=== PATIENT | female | born 1930 | race Caucasian/White ===

== ENCOUNTER 2017-01-24 11:19 | Inpatient (IN) | payer MEDICARE, MEDICAID ==
[~2017-01-24] VITALS: Ht 162.6 cm; Wt 73.1 kg
[2017-01-24] MEDS ORDERED: IV NS 0.9% 500 ML BAG IV ONE (11:30)
[2017-01-24 11:47] LABS: BASOPHILS # (AUTO) 0.3 /CMM (0.0-0.2); BASOPHILS % (AUTO) 3.2 % (0.0-2.0); EOSINOPHILS % (AUTO) 0.1 % (0.0-6.0); HEMATOCRIT 34 % (33-45); HEMOGLOBIN 11.2 g/dL (11.5-14.8); LYMPHOCYTES % (AUTO) 31.7 % (20.0-44.0); MEAN CORPUSCULAR HEMOGLOBIN 29 PG (26.0-33.0); MEAN CORPUSCULAR HGB CONC 33 g/dl (31.0-36.0); MEAN CORPUSCULAR VOLUME 89 fL (82-100); MONOCYTES # (AUTO) 1.1 /CMM (0.1-1.30); MONOCYTES % (AUTO) 11.7 % (2.0-12.0); NEUTROPHILS # (AUTO) 5.2 /CMM (1.8-8.9); NEUTROPHILS % (AUTO) 53.3 % (43.0-81.0); PLATELET COUNT (AUTO) 219 /CMM (150-450); RDW COEFFICIENT OF VARIATION 13.7 (11.5-15.0); RED BLOOD CELL COUNT(AUTO) 3.88 MIL/uL (4.0-5.2); WHITE BLOOD COUNT (AUTO) 9.6 K/uL (4.3-11.0)
[2017-01-24] MEDS ORDERED: LISI-603 PO (11:51)
[2017-01-24] MEDS ORDERED: HYDR100T27 PO (11:51)
[2017-01-24] MEDS ORDERED: DONE5TAB34 PO (11:51)
[2017-01-24] MEDS ORDERED: PRAV20TA4 PO (11:51)
[2017-01-24] MEDS ORDERED: GLIP5TAB13 PO (11:51)
[2017-01-24] MEDS ORDERED: CARV6.252 PO (11:51)
[2017-01-24] MEDS ORDERED: QUET25TA PO (11:51)
[2017-01-24] MEDS ORDERED: METF500T7 PO (11:51)
[2017-01-24] MEDS ORDERED: ALLO100T PO (11:51)
[2017-01-24] MEDS ORDERED: LORA10TA7 PO (11:53)
[2017-01-24] MEDS ORDERED: DOCU-25 PO (11:53)
[2017-01-24] MEDS ORDERED: ASPI81TA2 PO (11:53)
[2017-01-24 12:12] LABS: CALCIUM, SERUM 10.3 mg/dL (8.5-10.1); CARBON DIOXIDE 19 mmol/L (21-32); CHLORIDE 97 mmol/L (98-107); CREATININE 1.2 mg/dL (0.6-1.3); GLUCOSE 119 mg/dL (74-106); POTASSIUM 4.1 mmol/L (3.5-5.1); SODIUM SERUM 132 mmol/L (136-145); UREA NITROGEN, BLOOD 29 mg/dL (7-18)
[2017-01-24 12:13] LABS: INR 0.99 (0.87-1.13); PROTHROMBIN TIME 10.3 SECS (9.5-12.7)
[2017-01-24 12:21] LABS: TROPONIN I < 0.017 ng/mL (0.00-0.056)
[2017-01-24 12:57] LABS: THYROID STIMULATING HORMONE 1.462 uIU/mL (0.358-3.74)
[2017-01-24 13:10] LABS: APPEARANCE,URINE Clear (CLEAR); BILIRUBIN,URINE Negative (NEGATIVE); BLOOD, URINE Negative Ery/uL (NEGATIVE); COLOR,URINE Yellow (YELLOW); KETONES,URINE Negative (NEGATIVE); LEUKOCYTE ESTERASE ,URINE Negative (NEGATIVE); NITRITE, URINE Negative (NEGATIVE); PROTEIN,URINE Negative (NEGATIVE); UGLUCOSE Negative (NEGATIVE); UROBILINOGEN,URINE 0.2 EU/dL (0.2)
[2017-01-24] MEDS ORDERED: LABETALOL 20 MG/4 ML VIAL IV ONE (13:30)
[2017-01-24 15:00] VITALS: BP 183/80
[2017-01-24 15:04] VITALS: BP 181/76
[2017-01-24] MEDS ORDERED: hydrALAZINE HCL 50 MG TABLET PO ONE (15:30)
[2017-01-24 16:00] VITALS: BP 146/63
[2017-01-24 16:07] LABS: BILIRUBIN,DIRECT 0.1 mg/dL (0.0-0.2); BILIRUBIN,TOTAL 0.9 mg/dL (0.2-1.0)
[2017-01-24] MEDS ORDERED: ENOXAPARIN SODIUM 40 MG/0.4 ML DISP.SYRIN SQ SCH (16:30)
[2017-01-24] MEDS ORDERED: ONDANSETRON HCL/PF 4 MG/2 ML VIAL IVP PRN (16:30)
[2017-01-24] MEDS ORDERED: MAGNESIUM HYDROXIDE 30 ML UDC PO PRN (16:30)
[2017-01-24] MEDS ORDERED: Z GUARD REMEDY 2 OZ OINT TP PRN (16:30)
[2017-01-24] MEDS ORDERED: ACETAMINOPHEN 325 MG TABLET PO PRN (16:30)
[2017-01-24] MEDS ORDERED: BOOST PLUS FOOD-CHOCLATE 237 ML BOX PO SCH (17:00)
[2017-01-24] MEDS: DOCUSATE SODIUM 100 MG CAPSULE PO SCH (17:44)
[2017-01-24] MEDS: CARVEDILOL 6.25 MG TABLET PO SCH (17:44)
[2017-01-24] MEDS: glipiZIDE 5 MG TABLET PO SCH (17:45)
[2017-01-24] MEDS: ENOXAPARIN SODIUM 30 MG/0.3 ML DISP.SYRIN SQ SCH (17:48)
[2017-01-24 19:56] VITALS: BP 108/52
[2017-01-24 20:00] VITALS: BP 108/52
[2017-01-24] MEDS: IV NS 0.9% 1,000 ML IV PRN (20:37)
[2017-01-24] MEDS: hydrALAZINE HCL 25 MG TABLET PO SCH (21:00)
[2017-01-24] MEDS ORDERED: PRAVASTATIN SODIUM 20 MG TABLET PO SCH (22:00)
[2017-01-24] MEDS: DONEPEZIL 5 MG TABLET PO SCH (22:21)
[2017-01-24] MEDS: ATORVASTATIN 10 MG TABLET PO SCH (22:21)
[2017-01-24] MEDS: QUETIAPINE FUMARATE 25 MG TABLET PO SCH (22:21)
[2017-01-25] MEDS: hydrALAZINE HCL 25 MG TABLET PO SCH ×3 (05:10→21:21)
[2017-01-25] MEDS: IV NS 0.9% 1,000 ML IV PRN ×2 (06:19→16:27)
[2017-01-25 07:20] LABS: BASOPHILS % (AUTO) 0.5 % (0.0-2.0); HEMATOCRIT 28 % (33-45); HEMOGLOBIN 9.6 g/dL (11.5-14.8); LYMPHOCYTES # (AUTO) 2.6 /CMM (0.8-4.8); MEAN CORPUSCULAR HEMOGLOBIN 30 PG (26.0-33.0); MEAN CORPUSCULAR HGB CONC 34 g/dl (31.0-36.0); MEAN CORPUSCULAR VOLUME 89 fL (82-100); MONOCYTES % (AUTO) 16.6 % (2.0-12.0); NEUTROPHILS # (AUTO) 2.4 /CMM (1.8-8.9); NEUTROPHILS % (AUTO) 39.9 % (43.0-81.0); PLATELET COUNT (AUTO) 166 /CMM (150-450); RDW COEFFICIENT OF VARIATION 14.7 (11.5-15.0); RED BLOOD CELL COUNT(AUTO) 3.18 MIL/uL (4.0-5.2); WHITE BLOOD COUNT (AUTO) 6.1 K/uL (4.3-11.0)
[2017-01-25 07:34] LABS: ALANINE AMINOTRANSFERASE 35 U/L (12-78); ALBUMIN 3.4 g/dL (3.4-5.0); ALKALINE PHOSPHATASE 61 U/L (46-116); ASPARTATE AMINOTRANSFERASE 29 U/L (15-37); BILIRUBIN,TOTAL 0.7 mg/dL (0.2-1.0); CALCIUM, SERUM 8.9 mg/dL (8.5-10.1); CARBON DIOXIDE 22 mmol/L (21-32); CHLORIDE 107 mmol/L (98-107); GLUCOSE 97 mg/dL (74-106); MAGNESIUM 1.8 mg/dL (1.8-2.4); PHOSPHORUS 4.1 mg/dL (2.5-4.9); POTASSIUM 4.1 mmol/L (3.5-5.1); SODIUM SERUM 139 mmol/L (136-145); TOTAL PROTEIN, SERUM 6.6 g/dL (6.4-8.2); UREA NITROGEN, BLOOD 25 mg/dL (7-18)
[2017-01-25 07:43] LABS: CHOLESTEROL 120 mg/dL (<200); HDL CHOLESTEROL 32 mg/dL (40-60); LDL 66 mg/dL (0-99); THYROID STIMULATING HORMONE 1.896 uIU/mL (0.358-3.74); TRIGLYCERIDES 139 mg/dL (30-150)
[2017-01-25 08:00] VITALS: BP 151/68
[2017-01-25] MEDS: ASPIRIN 81 MG TAB.CHEW PO SCH (09:02)
[2017-01-25] MEDS: LORATADINE 10 MG TABLET PO SCH (09:02)
[2017-01-25] MEDS: DOCUSATE SODIUM 100 MG CAPSULE PO SCH ×2 (09:03→16:27)
[2017-01-25] MEDS: ALLOPURINOL 100 MG TABLET PO SCH (09:03)
[2017-01-25] MEDS: CARVEDILOL 6.25 MG TABLET PO SCH ×3 (09:03→16:27)
[2017-01-25] MEDS: glipiZIDE 5 MG TABLET PO SCH ×2 (09:03→16:27)
[2017-01-25] MEDS: LISINOPRIL (20MG) 20 MG TABLET PO SCH (09:04)
[2017-01-25] MEDS: BOOST FOOD- BERRY 237 ML BOX PO SCH ×2 (09:45→16:32)
[2017-01-25 16:00] VITALS: BP 154/76
[2017-01-25 20:00] VITALS: BP 139/64
[2017-01-25] MEDS: ATORVASTATIN 10 MG TABLET PO SCH (21:21)
[2017-01-25] MEDS: DONEPEZIL 5 MG TABLET PO SCH (21:21)
[2017-01-25] MEDS: QUETIAPINE FUMARATE 25 MG TABLET PO SCH (21:22)
[2017-01-25] MEDS: ENOXAPARIN SODIUM 30 MG/0.3 ML DISP.SYRIN SQ SCH (21:23)
[2017-01-25] MEDS ORDERED: MUPIROCIN OINT 2% 22 GM TUBE ONE (21:57)
[2017-01-26] MEDS: MUPIROCIN OINT 2% 22 GM TUBE SCH ×3 (00:40→20:17)
[2017-01-26] MEDS: hydrALAZINE HCL 25 MG TABLET PO SCH ×3 (04:33→20:14)
[2017-01-26] MEDS: IV NS 0.9% 1,000 ML IV PRN (04:33)
[2017-01-26 08:00] VITALS: BP_SYST 133; BP_SYST 175; BP_DIAS 77
[2017-01-26] MEDS: DOCUSATE SODIUM 100 MG CAPSULE PO SCH ×2 (08:19→16:39)
[2017-01-26] MEDS: LORATADINE 10 MG TABLET PO SCH (08:19)
[2017-01-26] MEDS: CARVEDILOL 6.25 MG TABLET PO SCH ×2 (08:19→16:19)
[2017-01-26] MEDS: ASPIRIN 81 MG TAB.CHEW PO SCH (08:19)
[2017-01-26] MEDS: ALLOPURINOL 100 MG TABLET PO SCH (08:19)
[2017-01-26] MEDS: glipiZIDE 5 MG TABLET PO SCH ×2 (08:19→16:18)
[2017-01-26] MEDS: LISINOPRIL (20MG) 20 MG TABLET PO SCH (08:19)
[2017-01-26 09:15] VITALS: BP 133/77
[2017-01-26 16:00] VITALS: BP 200/110
[2017-01-26] MEDS: hydrALAZINE HCL IV 20 MG VIAL IV PRN (16:19)
[2017-01-26 17:11] VITALS: BP 175/71
[2017-01-26 20:00] VITALS: BP 169/66
[2017-01-26] MEDS: ENOXAPARIN SODIUM 30 MG/0.3 ML DISP.SYRIN SQ SCH (20:16)
[2017-01-26] MEDS ORDERED: diphenhydrAMINE HCL 25 MG CAPSULE ONE (21:55)
[2017-01-26] MEDS ORDERED: diphenhydrAMINE HCL ELIX 25 MG/10 ML UDC PO ONE (22:00)
[2017-01-26] MEDS ORDERED: diphenhydrAMINE HCL ELIX 25 MG/10 ML UDC ONE (22:06)
[2017-01-26] MEDS: QUETIAPINE FUMARATE 25 MG TABLET PO SCH (22:08)
[2017-01-26] MEDS: DONEPEZIL 5 MG TABLET PO SCH (22:08)
[2017-01-26] MEDS: ATORVASTATIN 10 MG TABLET PO SCH (22:08)
[2017-01-26 22:15] VITALS: BP 153/67
[2017-01-27] MEDS: hydrALAZINE HCL 25 MG TABLET PO SCH ×2 (05:24→13:37)
[2017-01-27] MEDS: IV NS 0.9% 1,000 ML IV PRN (05:26)
[2017-01-27 06:40] LABS: CARBON DIOXIDE 24 mmol/L (21-32); CHLORIDE 108 mmol/L (98-107); CREATININE 0.9 mg/dL (0.6-1.3); GLUCOSE 121 mg/dL (74-106); POTASSIUM 3.7 mmol/L (3.5-5.1); SODIUM SERUM 141 mmol/L (136-145); UREA NITROGEN, BLOOD 13 mg/dL (7-18)
[2017-01-27 08:00] VITALS: BP 173/81
[2017-01-27] MEDS: MUPIROCIN OINT 2% 22 GM TUBE SCH (08:24)
[2017-01-27] MEDS: DOCUSATE SODIUM 100 MG CAPSULE PO SCH (08:24)
[2017-01-27] MEDS: LORATADINE 10 MG TABLET PO SCH (08:25)
[2017-01-27] MEDS: ASPIRIN 81 MG TAB.CHEW PO SCH (08:25)
[2017-01-27] MEDS: ALLOPURINOL 100 MG TABLET PO SCH (08:25)
[2017-01-27] MEDS: CARVEDILOL 6.25 MG TABLET PO SCH (08:25)
[2017-01-27] MEDS: LISINOPRIL (20MG) 20 MG TABLET PO SCH (08:25)
[2017-01-27] MEDS: glipiZIDE 5 MG TABLET PO SCH (08:25)
[2017-01-27] MEDS: hydrALAZINE HCL IV 20 MG VIAL IV PRN (08:28)
[2017-01-27 13:37] VITALS: BP 150/77
== END 2017-01-27 14:20 | DRG 682 ==
LOC: ER 11:22 → MED 13:03 → MEDSG2 14:52
PROVIDERS: ADMIT Nurse Practitioner Acute Care; ATTEND Nurse Practitioner Acute Care
DX: N17.0 Acute kidney failure with tubular necrosis (principal); G93.40 Encephalopathy, unspecified; E87.2 Acidosis; E87.1 Hypo-osmolality and hyponatremia; E83.52 Hypercalcemia; F03.90 Unspecified dementia, unspecified severity, without behavioral disturbance, psychotic disturbance, mood disturbance, and anxiety; Z91.011 Allergy to milk products; Z91.010 Allergy to peanuts; Z88.8 Allergy status to other drugs, medicaments and biological substances; Z91.018 Allergy to other foods; I10 Essential (primary) hypertension; M10.9 Gout, unspecified; Z79.899 Other long term (current) drug therapy; Z79.84 Long term (current) use of oral hypoglycemic drugs; Z79.82 Long term (current) use of aspirin; E86.0 Dehydration; E11.9 Type 2 diabetes mellitus without complications; G90.8 Other disorders of autonomic nervous system; E86.9 Volume depletion, unspecified
CPT/HCPCS: 36415; 70450-TC; 71010-TC; 80048-TC; 80053-TC; 80061-TC; 81000-TC; 82247-TC; 82248-TC; 83605-TC; 83735-TC; 84100-TC; 84443-TC; 84484-TC; 85025-TC; 85730-TC; 87040-TC; 87081-TC; A4606; J0360; J1650; J3490; J7030; J7040; Q0163; Z7610

== ENCOUNTER 2017-01-29 11:59 | Outpatient (CLI) | payer MEDICARE, MEDICAID ==
[~2017-01-29] VITALS: Ht 162.6 cm; Wt 73.0 kg
[~2017-01-29 11:59] MED LIST: ALLO100T PO; ASPI-1169 PO; CARV6.252 PO; DOCU-141 PO; DONE5TAB34 PO; GLIP5TAB13 PO; HYDR100T27 PO; LISI-603 PO; LORA10TA7 PO; METF500T7 PO; PRAV20TA4 PO; QUET25TA PO
[2017-01-29 12:02] VITALS: BP 125/62
== END 2017-01-29 23:59 | disposition home or self-care (01) ==
LOC: MSC 11:59
PROVIDERS: ATTEND Internal Medicine
DX: I10 Essential (primary) hypertension (principal); F32.9 Major depressive disorder, single episode, unspecified; F41.9 Anxiety disorder, unspecified; E78.5 Hyperlipidemia, unspecified; G93.40 Encephalopathy, unspecified; E11.9 Type 2 diabetes mellitus without complications; E87.2 Acidosis

== ENCOUNTER 2017-01-31 08:40 | Inpatient (IN) | payer MEDICARE, OTHER ==
[~2017-01-31] VITALS: Ht 167.6 cm; Wt 69.4 kg
[~2017-01-31 08:40] MED LIST changes: -ASPI-1169 PO; +ASPI81TA2 PO; -DOCU-141 PO; +DOCU-25 PO
--- NOTE | 2017-01-31 08:50 | NUR ---
JUAN KEENAN FROM [facility] S/P SLIP AND FALL OFF OF CHAIR. STAFF DENIES LOC. PT AWAKE, UNABLE TO GIVE INFO BUT ABLE TO FOLLOW MINIMAL COMMANDS. VSS. SEEN BY MD FOR EVAL. NO NOTED INJURY FROM FALL. SAFETY AND COMFORT MEASURES PROVIDED. WILL MONITOR.
--- NOTE | 2017-01-31 09:15 | NUR ---
IV ACCESS STARTED. BLOOD DRAWN FOR LABS.
[2017-01-31 09:18] LABS: BASOPHILS # (AUTO) 0.1 /CMM (0.0-0.2); BASOPHILS % (AUTO) 1.5 % (0.0-2.0); HEMATOCRIT 32 % (33-45); HEMOGLOBIN 10.6 g/dL (11.5-14.8); LYMPHOCYTES # (AUTO) 2.2 /CMM (0.8-4.8); LYMPHOCYTES % (AUTO) 26.7 % (20.0-44.0); MEAN CORPUSCULAR HEMOGLOBIN 30 PG (26.0-33.0); MEAN CORPUSCULAR HGB CONC 34 g/dl (31.0-36.0); MEAN CORPUSCULAR VOLUME 90 fL (82-100); MONOCYTES # (AUTO) 0.9 /CMM (0.1-1.30); MONOCYTES % (AUTO) 11.2 % (2.0-12.0); NEUTROPHILS % (AUTO) 60.6 % (43.0-81.0); PLATELET COUNT (AUTO) 184 /CMM (150-450); RED BLOOD CELL COUNT(AUTO) 3.53 MIL/uL (4.0-5.2); WHITE BLOOD COUNT (AUTO) 8.2 K/uL (4.3-11.0)
[2017-01-31 09:29] LABS: CALCIUM, SERUM 10.3 mg/dL (8.5-10.1); CARBON DIOXIDE 19 mmol/L (21-32); CHLORIDE 102 mmol/L (98-107); CREATININE 2.1 mg/dL (0.6-1.3); GLUCOSE 295 mg/dL (74-106); POTASSIUM 4.6 mmol/L (3.5-5.1); SODIUM SERUM 137 mmol/L (136-145); UREA NITROGEN, BLOOD 51 mg/dL (7-18)
--- NOTE | 2017-01-31 09:29 | NUR ---
PT NOTED ON SOILED DIAPER- CLEANED AND CHANGED PER PROTOCOL.
--- NOTE | 2017-01-31 09:29 | NUR ---
URINE SAMPLE OBTAINED, SENT.
--- NOTE | 2017-01-31 09:31 | NUR ---
PT TAKEN TO CT.
[2017-01-31 09:35] LABS: APPEARANCE,URINE Slightly Cloudy (CLEAR); BILIRUBIN,URINE Negative (NEGATIVE); BLOOD, URINE Negative Ery/uL (NEGATIVE); COLOR,URINE Yellow (YELLOW); KETONES,URINE Negative (NEGATIVE); LEUKOCYTE ESTERASE ,URINE Negative (NEGATIVE); NITRITE, URINE Positive (NEGATIVE); PROTEIN,URINE Trace mg/dl (NEGATIVE); UGLUCOSE Negative (NEGATIVE); UROBILINOGEN,URINE 0.2 EU/dL (0.2)
[2017-01-31 09:38] LABS: TROPONIN I < 0.017 ng/mL (0.00-0.056)
[2017-01-31 09:41] LABS: BACTERIA,URINE Moderate /HPF (None Seen); SQUAMOUS EPITHELIAL CELL,UR Few /HPF (None Seen)
[2017-01-31] MEDS ORDERED: IV NS 0.9% 1,000 ML IV ONE (10:00)
[2017-01-31] MEDS ORDERED: MAGNESIUM HYDROXIDE 30 ML UDC PO PRN (10:30)
[2017-01-31] MEDS ORDERED: MAG HYDROX/AL HYDROX/SIMETH 30 ML UDC PO PRN (10:30)
[2017-01-31] MEDS ORDERED: DEXTROSE 50%-WATER 50 ML DISP.SYRIN IV PRN (10:30)
[2017-01-31] MEDS ORDERED: ONDANSETRON HCL/PF 4 MG/2 ML VIAL IVP PRN (10:30)
[2017-01-31] MEDS ORDERED: ACETAMINOPHEN 325 MG TABLET PO PRN (10:30)
--- NOTE | 2017-01-31 11:34 | NUR ---
REPORT GIVEN TO MEDARDO WARNER FOR MS 325-2.
--- NOTE | 2017-01-31 11:35 | NUR ---
RECEIVED REPORT FROM ER NURSEROSELYN
[2017-01-31] MEDS: BLOOD SUGAR DIAGNOSTIC 1 EACH STRIP IN SCH ×3 (11:41→20:42)
[2017-01-31 12:00] VITALS: BP 139/72
--- NOTE | 2017-01-31 12:30 | NUR ---
PATIENT REFUSED INSULIN.
--- NOTE | 2017-01-31 13:00 | NUR ---
KERRY LANDRUM MADE AWARE OF MED RECON NEEDS TO BE COMPLETED
--- NOTE | 2017-01-31 14:00 | NUR ---
RN ADMITTING NOTES PATIENT ARRIVED TO UNIT AT 11:45 TO ROOM 325-2. PATIENT IS ALERT AND ORIENTED TO NAME, PLACE AND TIME WITH PERIOD OD CONFUSION AND DELAY SPEECH. NO SIGNS OR SYMPTOMS OF DISTRESS. DENIED PAIN. VITAL SIGNS STABLE ON ARRIVAL. SKIN ASSESSMENT COMPLETED, NO WOUNDS NOTIFIED. MRSA COMPLETED. IV SITE INTACT AND PATENT. MED RECON COMPLETED, LUCITA NOTIFIED. LABS WNL. TROPONIN NEGATIVE. PATIENT PLACED ON TELE MONITOR WITH SINUS RHYTHM. BED IN LOW POSITION, LOCKED AND TWO SIDE RAILS ARE UP. CALL LIGHT WITHIN REACH. WILL CONTINUE TO ASSESS AND MONITOR PATIENT THROUGH OUT MY SHIFT.
[2017-01-31 16:00] VITALS: BP 148/70
--- NOTE | 2017-01-31 16:45 | NUR ---
BLOOD SUGAR 188. 3 UNITS ADMINISTERED
[2017-01-31] MEDS: INSULIN REGULAR, HUMAN 100 UNIT/ML 3 ML VIAL SQ PRN ×2 (17:02→20:50)
--- NOTE | 2017-01-31 17:22 | NUR ---
KERRY LANDRUM MADE AWARE OF RECONCILIATION NOT DONE YET.
--- NOTE | 2017-01-31 17:36 | NUR ---
CALLED [facility] REGARDING FLU AND PNEUMONIA VACCINE. PER RN, NO VACCINE WAS GIVEN AND REQUESTED TO BE GIVEN PRIOR TO DISCHARGE.
--- NOTE | 2017-01-31 18:40 | NUR ---
RN ADMITTING NOTES PATIENT IS IN BED. PATIENT IS ALERT AND ORIENTED TO NAME, PLACE AND TIME WITH PERIOD OF CONFUSION AND DELAY SPEECH. NO SIGNS OR SYMPTOMS OF DISTRESS. DENIED PAIN. VITAL SIGNS STABLE. IV SITE INTACT AND PATENT. PATIENT IS ON TELE MONITOR WITH SINUS RHYTHM. BED IN LOW POSITION, LOCKED AND TWO SIDE RAILS ARE UP. CALL LIGHT WITHIN REACH. WILL ENDORSE TO MAMMOGRAPHER NURSE
--- NOTE | 2017-01-31 19:30 | NUR ---
LUCITA PAYNE MADE AWARE OF HIGH BLOOD PRESSURE 174/80.
[2017-01-31 20:00] VITALS: BP 174/84
[2017-01-31] MEDS ORDERED: PRAVASTATIN SODIUM 20 MG TABLET PO SCH (22:00)
[2017-01-31] MEDS ORDERED: QUETIAPINE FUMARATE 25 MG TABLET ONE (23:12)
[2017-01-31] MEDS ORDERED: DONEPEZIL 5 MG TABLET ONE (23:13)
[2017-01-31] MEDS: DONEPEZIL 5 MG TABLET PO SCH (23:17)
[2017-01-31] MEDS: QUETIAPINE FUMARATE 25 MG TABLET PO SCH (23:17)
[2017-02-01] VITALS: BP 155/77
[2017-02-01 04:00] VITALS: BP 138/52
[2017-02-01] MEDS: PANTOPRAZOLE 40 MG TABLET.DR PO SCH ×2 (07:30→08:56)
[2017-02-01] MEDS: BLOOD SUGAR DIAGNOSTIC 1 EACH STRIP IN SCH ×4 (07:30→21:58)
--- NOTE | 2017-02-01 07:30 | NUR ---
MS RN RECEIVED ON BED, AWAKE,ALERT,ORIENTED X3,NOT IN ANY FORM OF DISTRESS, RESPIRATIONS EVEN AND UNLABORED,NO SOB NOTED, LUNGS ARE CLEAR,ABDOMEN SOFT,POSITIVE BOWEL SOUNDS, DENIES PAIN AT THIS TIME.
[2017-02-01 07:59] LABS: BASOPHILS % (AUTO) 0.3 % (0.0-2.0); EOSINOPHILS % (AUTO) 0.3 % (0.0-6.0); HEMATOCRIT 31 % (33-45); LYMPHOCYTES % (AUTO) 29.7 % (20.0-44.0); MEAN CORPUSCULAR HEMOGLOBIN 29 PG (26.0-33.0); MEAN CORPUSCULAR HGB CONC 33 g/dl (31.0-36.0); MEAN CORPUSCULAR VOLUME 90 fL (82-100); MONOCYTES % (AUTO) 14.6 % (2.0-12.0); NEUTROPHILS # (AUTO) 3.7 /CMM (1.8-8.9); NEUTROPHILS % (AUTO) 55.1 % (43.0-81.0); PLATELET COUNT (AUTO) 187 /CMM (150-450); RDW COEFFICIENT OF VARIATION 14.8 (11.5-15.0); RED BLOOD CELL COUNT(AUTO) 3.39 MIL/uL (4.0-5.2); WHITE BLOOD COUNT (AUTO) 6.7 K/uL (4.3-11.0)
[2017-02-01 08:00] VITALS: BP 170/80
[2017-02-01 08:02] LABS: CALCIUM, SERUM 9.8 mg/dL (8.5-10.1); CARBON DIOXIDE 20 mmol/L (21-32); CHLORIDE 106 mmol/L (98-107); CREATININE 1.1 mg/dL (0.6-1.3); GLUCOSE 153 mg/dL (74-106); MAGNESIUM 1.7 mg/dL (1.8-2.4); POTASSIUM 4.2 mmol/L (3.5-5.1); SODIUM SERUM 139 mmol/L (136-145); UREA NITROGEN, BLOOD 31 mg/dL (7-18)
[2017-02-01 08:08] LABS: CHOLESTEROL 114 mg/dL (<200); HDL CHOLESTEROL 38 mg/dL (40-60); LDL 62 mg/dL (0-99); TRIGLYCERIDES 122 mg/dL (30-150)
[2017-02-01] MEDS: ALLOPURINOL 100 MG TABLET PO SCH (08:53)
[2017-02-01] MEDS: DOCUSATE SODIUM 100 MG CAPSULE PO SCH ×2 (08:53→17:10)
[2017-02-01] MEDS: ASPIRIN 81 MG TAB.CHEW PO SCH (08:53)
[2017-02-01] MEDS: LORATADINE 10 MG TABLET PO SCH (08:54)
[2017-02-01] MEDS: CARVEDILOL 6.25 MG TABLET PO SCH ×2 (08:55→17:13)
[2017-02-01] MEDS ORDERED: hydrALAZINE HCL 50 MG TABLET PO SCH (09:00)
[2017-02-01] MEDS ORDERED: LISINOPRIL (20MG) 20 MG TABLET PO SCH (09:00)
[2017-02-01] MEDS ORDERED: glipiZIDE 5 MG TABLET PO SCH (09:00)
--- NOTE | 2017-02-01 09:00 | NUR ---
MS WARNER BREAKFAST SERVED,DUE MEDS GIVEN,TOLERATED WELL.
--- NOTE | 2017-02-01 11:00 | NUR ---
MS WARNER ON BED,NO DISTRESS NOTED,STILL WAITING FOR TRANSPORTATION TO BE DISCHARGE. Addendum: 02/01/17 at 1832 by JOSE ALFREDO KRISHNAMURTHY RN DISREGARD NOTES, WRONG PATIENT.
[2017-02-01] MEDS: Z GUARD REMEDY 2 OZ OINT TP SCH ×2 (11:49→21:55)
[2017-02-01] MEDS: Magnesium 1GM/D5W 100ML PREMIX 100 ML IV SCH ×2 (11:49→13:13)
[2017-02-01] MEDS: INSULIN REGULAR, HUMAN 100 UNIT/ML 3 ML VIAL SQ PRN ×3 (12:22→22:07)
--- NOTE | 2017-02-01 15:00 | NUR ---
MS RN WAS SEEN BY DR. FLEMING, NO ORDER AT THIS TIME.
[2017-02-01 16:00] VITALS: BP 165/83
[2017-02-01] MEDS: hydrALAZINE HCL 50 MG TABLET PO SCH (17:13)
--- NOTE | 2017-02-01 17:30 | NUR ---
MS WARNER BS - 138 - 2 UNITS REG INSULIN GIVEN SQ.
[2017-02-01] MEDS: IV NS 0.9% 1,000 ML IV PRN (17:32)
--- NOTE | 2017-02-01 18:27 | NUR ---
MS WARNER WENT TO [facility] VIA AMBULANCE,ALL NEEDS ATTENDED. Addendum: 02/01/17 at 1829 by JOSE ALFREDO KRISHNAMURTHY RN DISREGARD NOTES, WRONG PATIENT.
--- NOTE | 2017-02-01 18:36 | NUR ---
MS RN ON BED, NO DISTRESS NOTED.
[2017-02-01 20:00] VITALS: BP 110/56
[2017-02-01 20:37] VITALS: BP 110/46
[2017-02-01] MEDS ORDERED: ATORVASTATIN 10 MG TABLET PO SCH (22:00)
[2017-02-01] MEDS: QUETIAPINE FUMARATE 25 MG TABLET PO SCH (22:07)
[2017-02-01] MEDS: DONEPEZIL 5 MG TABLET PO SCH (22:08)
--- NOTE | 2017-02-02 05:38 | NUR ---
RN NOTES Patient slept comfortably during shift. No acute change in condition. All needs attended. Due meds given as ordered. Good perineal care rendered. Will continue to monitor.
[2017-02-02] MEDS: BLOOD SUGAR DIAGNOSTIC 1 EACH STRIP IN SCH ×2 (06:20→11:49)
[2017-02-02] MEDS: INSULIN REGULAR, HUMAN 100 UNIT/ML 3 ML VIAL SQ PRN ×2 (06:23→11:49)
[2017-02-02] MEDS: IV NS 0.9% 1,000 ML IV PRN (06:28)
[2017-02-02 08:00] VITALS: BP 134/65
--- NOTE | 2017-02-02 08:00 | NUR ---
m/s logistics account manager: initial assessment received pt in bed awake, a/ox3 with periods of forgetfulness. reality orientation provided prn. no c/o pain or any discomfort. instructed to call for assistance. will continue to monitor.
[2017-02-02 08:40] VITALS: BP_SYST 129; BP_SYST 135; BP_SYST 136; BP_DIAS 50; BP_DIAS 59; BP_DIAS 66
[2017-02-02] MEDS: ASPIRIN 81 MG TAB.CHEW PO SCH (08:45)
[2017-02-02] MEDS: ALLOPURINOL 100 MG TABLET PO SCH (08:45)
[2017-02-02] MEDS: PANTOPRAZOLE 40 MG TABLET.DR PO SCH (08:45)
[2017-02-02] MEDS: LORATADINE 10 MG TABLET PO SCH (08:45)
[2017-02-02 08:46] VITALS: BP 135/66
[2017-02-02] MEDS: DOCUSATE SODIUM 100 MG CAPSULE PO SCH (08:46)
[2017-02-02] MEDS: CARVEDILOL 6.25 MG TABLET PO SCH (08:46)
[2017-02-02] MEDS: Z GUARD REMEDY 2 OZ OINT TP SCH (08:46)
[2017-02-02] MEDS: hydrALAZINE HCL 50 MG TABLET PO SCH (08:46)
--- NOTE | 2017-02-02 10:00 | NUR ---
m/s offset plate preparation supervisor: md visit seen by diana mendoza and informed pt that she is going back to sn[facility] today. up in chair at this time. lenin ([facility]) made aware and accepted report over the phone for continuity of care.
--- NOTE | 2017-02-02 10:30 | NUR ---
m/s it business systems analyst: notes pt pulled her iv, no bleeding noted. will continue to monitor.
--- NOTE | 2017-02-02 10:40 | NUR ---
chelo/eugenio estevez: notes blas (son) notified and made aware re: mikhail'micah back to [facility], spoke to him over the phone. Addendum: 02/02/17 at 1042 by LIBERTY LARA LVN lenin on the phone and informed me that they are able to pick her up.
--- NOTE | 2017-02-02 10:45 | NUR ---
m/s process plant operator: notes discharge instructions given to pt and verbalized understanding. pt aware that jessica special client bus driver to pick her up. pt stable for discharge. will continue to monitor.
--- NOTE | 2017-02-02 12:00 | NUR ---
m/s loading machine operator: notes pt sitting up for lunch at this time. still awaiting for sales route driver to pick her up. pt aware. instructed to call for assistance.
--- NOTE | 2017-02-02 12:25 | NUR ---
m/s windshield installer: discharged discharged home with caty rangel entry level truck driver in stable condition with all d'c papers and valuables.
== END 2017-02-02 12:20 | DRG 682 ==
LOC: ER 08:41 → MED 11:03 → TELE 23:06 → MED 02-01 11:00
PROVIDERS: ADMIT Nurse Practitioner Acute Care; ATTEND Nurse Practitioner Acute Care
DX: N17.0 Acute kidney failure with tubular necrosis (principal); G93.41 Metabolic encephalopathy; E11.22 Type 2 diabetes mellitus with diabetic chronic kidney disease; F03.91 Unspecified dementia, unspecified severity, with behavioral disturbance; E83.42 Hypomagnesemia; E83.52 Hypercalcemia; W07.XXXA Fall from chair, initial encounter; E86.0 Dehydration; I12.9 Hypertensive chronic kidney disease with stage 1 through stage 4 chronic kidney disease, or unspecified chronic kidney disease; N18.9 Chronic kidney disease, unspecified; Y92.099 Unspecified place in other non-institutional residence as the place of occurrence of the external cause; M10.9 Gout, unspecified; Z88.8 Allergy status to other drugs, medicaments and biological substances; Z91.02 Food additives allergy status; Z91.011 Allergy to milk products; Z91.010 Allergy to peanuts; Z79.82 Long term (current) use of aspirin; Z79.899 Other long term (current) drug therapy; Z79.84 Long term (current) use of oral hypoglycemic drugs; Z90.49 Acquired absence of other specified parts of digestive tract; D63.8 Anemia in other chronic diseases classified elsewhere
CPT/HCPCS: 36415; 70450-TC; 80048-TC; 80061-TC; 81000-TC; 82040-TC; 82962-TC; 83735-TC; 84100-TC; 84484-TC; 85025-TC; 87081-TC; 87086-TC; 87186-TC; A4606; J1815; J3475; J7030; Z7610

== ENCOUNTER 2017-02-05 06:51 | Inpatient (IN) | payer MEDICARE, MEDICAID ==
[~2017-02-05] VITALS: Ht 165.1 cm; Wt 69.9 kg
[~2017-02-05 06:51] MED LIST changes: +ASPI-1169 PO; -ASPI81TA2 PO; +DOCU-141 PO; -DOCU-25 PO
--- NOTE | 2017-02-05 07:03 | NUR ---
BB RA; GLF, UNWITNESSED, C/O BACK OF HEAD PAIN. PT AOX3 RR EVEN AND UNLABORED. NO SOB NOTED. NAD NOTED. NO NVD AT THIS TIME. PT GOWNED AND PLACED ON MONITOR. PT NOT DIAPHORETIC. PT WAITING FOR MD DIAZ.
--- NOTE | 2017-02-05 07:17 | NUR ---
IV STARTED ON LEFT HAND 20G. LAB AT BEDSIDE FOR BLOOD DRAW
--- NOTE | 2017-02-05 07:26 | NUR ---
REPORT GIVEN TO ALANA MAURO FOR LIEN.
[2017-02-05] MEDS ORDERED: ACETAMINOPHEN ES 500 MG TABLET PO ONE (07:30)
[2017-02-05 07:36] LABS: BASOPHILS % (AUTO) 0.2 % (0.0-2.0); EOSINOPHILS % (AUTO) 0.1 % (0.0-6.0); HEMATOCRIT 28 % (33-45); HEMOGLOBIN 9.4 g/dL (11.5-14.8); LYMPHOCYTES # (AUTO) 1.6 /CMM (0.8-4.8); LYMPHOCYTES % (AUTO) 21.3 % (20.0-44.0); MEAN CORPUSCULAR HEMOGLOBIN 30 PG (26.0-33.0); MEAN CORPUSCULAR HGB CONC 34 g/dl (31.0-36.0); MEAN CORPUSCULAR VOLUME 90 fL (82-100); MONOCYTES % (AUTO) 25.8 % (2.0-12.0); NEUTROPHILS % (AUTO) 52.6 % (43.0-81.0); PLATELET COUNT (AUTO) 166 /CMM (150-450); RDW COEFFICIENT OF VARIATION 14.6 (11.5-15.0); WHITE BLOOD COUNT (AUTO) 7.6 K/uL (4.3-11.0)
[2017-02-05 07:54] LABS: INR 1.09 (0.87-1.13); PROTHROMBIN TIME 11.3 SECS (9.5-12.7)
[2017-02-05 07:59] LABS: CALCIUM, SERUM 9.2 mg/dL (8.5-10.1); CARBON DIOXIDE 22 mmol/L (21-32); CHLORIDE 103 mmol/L (98-107); CREATININE 1.2 mg/dL (0.6-1.3); GLUCOSE 138 mg/dL (74-106); SODIUM SERUM 138 mmol/L (136-145); UREA NITROGEN, BLOOD 32 mg/dL (7-18)
--- NOTE | 2017-02-05 08:00 | NUR ---
RESTING QUIETLY, NAD NOTED. ALL NEEDS ATTENDED TO. C-COLLAR REMOVED PER MD.
[2017-02-05 08:03] LABS: ALANINE AMINOTRANSFERASE 39 U/L (12-78); ALBUMIN 3.7 g/dL (3.4-5.0); ALKALINE PHOSPHATASE 75 U/L (46-116); ASPARTATE AMINOTRANSFERASE 30 U/L (15-37); BILIRUBIN,DIRECT 0.2 mg/dL (0.0-0.2); BILIRUBIN,TOTAL 1.2 mg/dL (0.2-1.0); TOTAL PROTEIN, SERUM 7.5 g/dL (6.4-8.2)
[2017-02-05 08:04] LABS: TROPONIN I 0.017 ng/mL (0.00-0.056)
[2017-02-05] MEDS ORDERED: ACETAMINOPHEN ES 500 MG TABLET ONE (08:19)
--- NOTE | 2017-02-05 08:52 | NUR ---
panel on-call paged
--- NOTE | 2017-02-05 09:07 | NUR ---
RESTING QUIETLY, NAD NOTED. VSS.
--- NOTE | 2017-02-05 09:09 | NUR ---
PT STILL DOES NOT NEED TO URINATE. PER MD, NO INDICATIION TO DO IN AND OUT CATH FOR NO URINE.
--- NOTE | 2017-02-05 09:21 | NUR ---
panel on-call paged
[2017-02-05 09:39] LABS: LYMPHOCYTES % (MANUAL) 29 % (16-48); MONOCYTES % (MANUAL) 22 % (0-11.0); NEUTROPHILS % (MANUAL) 49 (42-76)
--- NOTE | 2017-02-05 10:25 | NUR ---
REPORT GIVEN TO LAURA WARNER FOR ADMISSION
--- NOTE | 2017-02-05 10:30 | NUR ---
TRANSPORTED TO [facility] IN STABLE CONDITION VIA ACLS PROTOCOL
[2017-02-05 10:45] VITALS: BP 143/70
--- NOTE | 2017-02-05 10:45 | NUR ---
RN NOTES RECEIVED PT FROM ER IN ROOM 116-1, PT IS A/Ox4, RESPIRATION EVEN AND UNLABORED, ON RA NO SOB NOTED, ON TELE SR , HR IN HIGH 60'S, R HAND BRUISING AND SLIGHT SACRUM REDNESS NOTED, SKIN PHOTO TAKEN , L HAND IV SITE G 20 CDI, VSS STABLE , SR UP x3, CALL LIGHT WITHIN EASY REACH, BED LOCKED AND IN LOWEST POSITION , BED ALARM ON , CONTINUE TO MONITOR .
[2017-02-05] MEDS ORDERED: MAGNESIUM HYDROXIDE 30 ML UDC PO PRN (13:00)
[2017-02-05] MEDS ORDERED: ONDANSETRON HCL/PF 4 MG/2 ML VIAL IVP PRN (13:00)
[2017-02-05] MEDS ORDERED: MAG HYDROX/AL HYDROX/SIMETH 30 ML UDC PO PRN (13:00)
[2017-02-05] MEDS: IV NS 0.9% 1,000 ML IV PRN (13:49)
[2017-02-05 16:00] VITALS: BP 148/70
[2017-02-05] MEDS ORDERED: Z GUARD REMEDY 2 OZ OINT TP PRN (16:00)
--- NOTE | 2017-02-05 17:00 | NUR ---
RN NOTES NEOL MUSEUM TECHNICIAN NOTIFIED REGARDING MED RECON THAT NEEDS TO BE DONE PER PHARMACY .
--- NOTE | 2017-02-05 18:44 | NUR ---
RN NOTES IVF NS AT 75CC/HR RUNNING VIA L HAND IV G 20 WELL. NO DISTRESS NOTED , SR UP x3, CALL LIGHT WITHIN EASY REACH, WILL ENDORSE TO PHYSICIST NUCLEAR NURSE FOR LIEN .
[2017-02-05 20:00] VITALS: BP 140/74
--- NOTE | 2017-02-05 20:08 | NUR ---
RN INITIAL TELE NOTES RECEIVED PT IS A/Ox4, RESPIRATION EVEN AND UNLABORED, ON RA NO SOB NOTED, ON TELE SR , HR IN HIGH 70'S, DENIES ANY PAIN , L HAND IV SITE G 20 CDI, VSS STABLE , ALL NEEDS MET, CALL LIGHT WITHIN EASY REACH, BED LOCKED AND IN LOWEST POSITION , BED ALARM ON , CONTINUE TO MONITOR .
[2017-02-05] MEDS: QUETIAPINE FUMARATE 25 MG TABLET PO SCH (21:59)
[2017-02-05] MEDS: DONEPEZIL 5 MG TABLET PO SCH (21:59)
[2017-02-05] MEDS: PRAVASTATIN SODIUM 20 MG TABLET PO SCH (21:59)
[2017-02-06] VITALS (7 sets, daily range): BP systolic 114–174; BP diastolic 45–79
--- NOTE | 2017-02-06 | NUR ---
CALLED RITA GE NP, TO REPORT PT WITH EPISODE OF ELEVATED BP 174/76, 76 98.7, 20, 95% WITH ORDER FOR HYDRALIZINE 10 MG IV PUSH X 1 DOSE.
[2017-02-06] MEDS ORDERED: hydrALAZINE HCL IV 20 MG VIAL ONE (00:19)
[2017-02-06] MEDS ORDERED: hydrALAZINE HCL IV 20 MG VIAL IV ONE (00:30)
[2017-02-06 04:39] LABS: APPEARANCE,URINE CLEAR (CLEAR); BILIRUBIN,URINE NEGATIVE (NEGATIVE); BLOOD, URINE NEGATIVE Ery/uL (NEGATIVE); COLOR,URINE YELLOW (YELLOW); KETONES,URINE NEGATIVE (NEGATIVE); LEUKOCYTE ESTERASE ,URINE NEGATIVE (NEGATIVE); NITRITE, URINE POSITIVE (NEGATIVE); PROTEIN,URINE NEGATIVE (NEGATIVE); UGLUCOSE NEGATIVE (NEGATIVE); UROBILINOGEN,URINE 0.2 EU/dL (0.2)
[2017-02-06 04:45] LABS: BACTERIA,URINE Moderate /HPF (None Seen); RBC,URINE NONE SEEN /HPF (0-2); SQUAMOUS EPITHELIAL CELL,UR Few /HPF (None Seen)
--- NOTE | 2017-02-06 06:16 | NUR ---
RN CLOSING TELE NOTES ENDORSED PT IS A/Ox4, RESPIRATION EVEN AND UNLABORED, ON RA NO SOB NOTED, ON TELE SR , HR IN HIGH 90'S, BP TRENDING DOWN, DENIES ANY PAIN , L HAND IV SITE G 20 CDI , UA COLLECTED. ALL NEEDS MET, CALL LIGHT WITHIN EASY REACH, BED LOCKED AND IN LOWEST POSITION , BED ALARM ON , CONTINUE TO MONITOR .
[2017-02-06 07:52] LABS: BASOPHILS % (AUTO) 0.6 % (0.0-2.0); EOSINOPHILS # (AUTO) 0.1 /CMM (0.0-0.7); EOSINOPHILS % (AUTO) 1.1 % (0.0-6.0); HEMATOCRIT 29 % (33-45); HEMOGLOBIN 9.7 g/dL (11.5-14.8); LYMPHOCYTES # (AUTO) 1.7 /CMM (0.8-4.8); LYMPHOCYTES % (AUTO) 33.6 % (20.0-44.0); MEAN CORPUSCULAR HEMOGLOBIN 30 PG (26.0-33.0); MEAN CORPUSCULAR HGB CONC 33 g/dl (31.0-36.0); MEAN CORPUSCULAR VOLUME 89 fL (82-100); MONOCYTES # (AUTO) 1.5 /CMM (0.1-1.30); MONOCYTES % (AUTO) 30.2 % (2.0-12.0); NEUTROPHILS # (AUTO) 1.7 /CMM (1.8-8.9); NEUTROPHILS % (AUTO) 34.5 % (43.0-81.0); PLATELET COUNT (AUTO) 147 /CMM (150-450); RDW COEFFICIENT OF VARIATION 14.4 (11.5-15.0); RED BLOOD CELL COUNT(AUTO) 3.27 MIL/uL (4.0-5.2)
[2017-02-06 08:13] LABS: CARBON DIOXIDE 22 mmol/L (21-32); CHLORIDE 103 mmol/L (98-107); CREATININE 0.9 mg/dL (0.6-1.3); GLUCOSE 123 mg/dL (74-106); MAGNESIUM 1.7 mg/dL (1.8-2.4); POTASSIUM 3.8 mmol/L (3.5-5.1); SODIUM SERUM 137 mmol/L (136-145); UREA NITROGEN, BLOOD 24 mg/dL (7-18)
[2017-02-06] MEDS: FAMOTIDINE/PF INJ 20 MG/2 ML VIAL IV SCH (09:14)
[2017-02-06] MEDS: LISINOPRIL (20MG) 20 MG TABLET PO SCH (09:15)
[2017-02-06] MEDS: ALLOPURINOL 100 MG TABLET PO SCH (09:15)
[2017-02-06] MEDS: METFORMIN XR 500 MG TAB.SR.24H PO SCH (09:15)
[2017-02-06] MEDS: hydrALAZINE HCL 50 MG TABLET PO SCH (09:15)
[2017-02-06] MEDS: LORATADINE 10 MG TABLET PO SCH (09:15)
[2017-02-06] MEDS: DOCUSATE SODIUM 100 MG CAPSULE PO SCH ×2 (09:16→16:18)
[2017-02-06] MEDS: ASPIRIN 81 MG TAB.CHEW PO SCH (09:16)
[2017-02-06] MEDS: glipiZIDE 5 MG TABLET PO SCH ×2 (09:16→16:18)
[2017-02-06] MEDS: CARVEDILOL 6.25 MG TABLET PO SCH ×2 (09:16→16:19)
[2017-02-06] MEDS: IV NS 0.9% 1,000 ML IV PRN (09:17)
[2017-02-06] MEDS: Magnesium 1GM/D5W 100ML PREMIX 100 ML IV SCH ×2 (09:28→10:39)
[2017-02-06 09:48] LABS: LYMPHOCYTES % (MANUAL) 45 % (16-48); MONOCYTES % (MANUAL) 14 % (0-11.0); NEUTROPHILS % (MANUAL) 41 (42-76)
[2017-02-06] MEDS ORDERED: DIVA500T4 PO (12:01)
--- NOTE | 2017-02-06 17:48 | NUR ---
Patient resides at [facility] [phone], ambulates with a walker, requires min assist with adl's. Plan is to return to [facility], Jada can provide transportation. Addendum: 02/06/17 at 1748 by SALOMON WREN RN Amended: Links added.
--- NOTE | 2017-02-06 20:00 | NUR ---
RN INITIAL TELE NOTES PATIENT IS RESTING IN BED, RESPIRATION EVEN AND UNLABORED, ON RA NO SOB NOTED, ON TELE SR , HR IN HIGH 90'S, BP TRENDING DOWN, PT DENIES ANY PAIN AT THIS TIME ,PT HAS A L HAND IV SITE G 20 CDI, CALL LIGHT WITHIN EASY REACH, BED LOCKED AND IN LOWEST POSITION , BED ALARM ON , CONTINUE TO MONITOR .
[2017-02-06] MEDS: DIVALPROEX SODIUM 500 MG TABLET.DR PO SCH (21:29)
[2017-02-06] MEDS: QUETIAPINE FUMARATE 25 MG TABLET PO SCH (21:30)
[2017-02-06] MEDS: PRAVASTATIN SODIUM 20 MG TABLET PO SCH (21:30)
[2017-02-06] MEDS: DONEPEZIL 5 MG TABLET PO SCH (21:30)
[2017-02-07] VITALS: BP 122/47
[2017-02-07] MEDS: IV NS 0.9% 1,000 ML IV PRN ×2 (02:34→19:36)
--- NOTE | 2017-02-07 03:59 | NUR ---
telecom engineer notes pts on bed awake and responsive .sleeping but easily arouse , all needs attended too, continue on ivf of ns at 75cc/hr, infusing well , no so=ignificant changed noted , v/s stable and afebrile .kept pts comfortable in bed.
[2017-02-07 04:00] VITALS: BP 148/65
--- NOTE | 2017-02-07 05:53 | NUR ---
RN CLOSING NOTE PATIENT IS RESTING IN BED, NO CHANGES OVER NIGHT, NO SIGNS OF DISTRESS, CALL LIGHT WITHIN EASY REACH, BED LOCKED AND IN LOWEST POSITION , BED ALARM ON , WILL ENDORSE TO MONITOR .
[2017-02-07 06:44] LABS: CALCIUM, SERUM 8.8 mg/dL (8.5-10.1); CARBON DIOXIDE 20 mmol/L (21-32); CHLORIDE 106 mmol/L (98-107); CREATININE 1.1 mg/dL (0.6-1.3); GLUCOSE 88 mg/dL (74-106); SODIUM SERUM 138 mmol/L (136-145); UREA NITROGEN, BLOOD 24 mg/dL (7-18)
--- NOTE | 2017-02-07 07:42 | NUR ---
RN INITIAL TELE NOTES PATIENT IS RESTING IN BED, RESPIRATION EVEN AND UNLABORED, PT ON RA NO SOB NOTED, ON TELE SR , VITALS SIGNS WNL, PT DENIES ANY PAIN AT THIS TIME ,PT HAS A L HAND IV SITE G 20 CDI NORMAL SALINE AT 75 ML/HR , CALL LIGHT WITHIN EASY REACH, BED LOCKED AND IN LOWEST POSITION , BED ALARM ON , RN WILL CONTINUE TO MONITOR THROUGHOUT THE DAY .
[2017-02-07 08:00] VITALS: BP 103/61
[2017-02-07] MEDS: METFORMIN XR 500 MG TAB.SR.24H PO SCH (08:21)
[2017-02-07] MEDS: DOCUSATE SODIUM 100 MG CAPSULE PO SCH ×2 (08:21→16:21)
[2017-02-07] MEDS: LORATADINE 10 MG TABLET PO SCH (08:23)
[2017-02-07] MEDS: CARVEDILOL 6.25 MG TABLET PO SCH ×2 (08:23→16:21)
[2017-02-07] MEDS: LISINOPRIL (20MG) 20 MG TABLET PO SCH (08:23)
[2017-02-07] MEDS: glipiZIDE 5 MG TABLET PO SCH ×2 (08:23→16:21)
[2017-02-07] MEDS: ASPIRIN 81 MG TAB.CHEW PO SCH (08:23)
[2017-02-07] MEDS: FAMOTIDINE/PF INJ 20 MG/2 ML VIAL IV SCH (08:23)
[2017-02-07] MEDS: hydrALAZINE HCL 50 MG TABLET PO SCH (08:23)
[2017-02-07] MEDS: ALLOPURINOL 100 MG TABLET PO SCH (08:24)
[2017-02-07 12:00] VITALS: BP 107/44
--- NOTE | 2017-02-07 14:00 | NUR ---
RN NOTE PATIENT SON UPDATED ON THE PATIENT PLAN , ANIMAL CARE ASSISTANT LUCITA INFORMED THE PATIENT SON ABOUT THE PLAN TO PERFORM EED, PATIENT SON ACKNOWLEDGED UNDERSTANDING
[2017-02-07 16:00] VITALS: BP 138/54
[2017-02-07 20:00] VITALS: BP 130/76
--- NOTE | 2017-02-07 20:00 | NUR ---
RN INITIAL NOTE PATIENT IS RESTING IN BED, NO SIGNS OF DISTRESS, CALL LIGHT WITHIN EASY REACH, BED LOCKED AND IN LOWEST POSITION , BED ALARM ON , WILL CONTINUE TO MONITOR PT .
[2017-02-07] MEDS: DONEPEZIL 5 MG TABLET PO SCH (21:47)
[2017-02-07] MEDS: DIVALPROEX SODIUM 500 MG TABLET.DR PO SCH (21:47)
[2017-02-07] MEDS: QUETIAPINE FUMARATE 25 MG TABLET PO SCH (21:47)
[2017-02-07] MEDS: PRAVASTATIN SODIUM 20 MG TABLET PO SCH (21:48)
[2017-02-08] VITALS (7 sets, daily range): BP systolic 133–186; BP diastolic 61–81
--- NOTE | 2017-02-08 06:55 | NUR ---
RN CLOSING NOTE PATIENT IS RESTING IN BED, NO SIGNS OF DISTRESS, CALL LIGHT WITHIN EASY REACH, BED LOCKED AND IN LOWEST POSITION , BED ALARM ON , WILL ENDORSE TO AM RN .
--- NOTE | 2017-02-08 07:36 | NUR ---
DELINQUENCY PREVENTION OFFICER NOTE PATIENT ION BED , ALL NEEDS ATTENDED , ON TELE MONITOR SR 66 , ON LT HAND HL INTACT, ON IVF ORDERED , BED IN LOWEST AND LOCKED POSITION , PLAN OF CARE DISCUSSED WITH PATIENT WILL CONT TO MONITOR CLOSELY, NO SOB NOTED Addendum: 02/08/17 at 0902 [place] [id number] NOTED HL ON LT HAND WITH REDNESS ,WILL REINSERT NEW HL
[2017-02-08] MEDS: LISINOPRIL (20MG) 20 MG TABLET PO SCH (08:04)
[2017-02-08] MEDS: DOCUSATE SODIUM 100 MG CAPSULE PO SCH ×2 (08:05→16:01)
[2017-02-08] MEDS: CARVEDILOL 6.25 MG TABLET PO SCH ×2 (08:05→16:01)
[2017-02-08] MEDS: glipiZIDE 5 MG TABLET PO SCH ×2 (08:06→16:01)
[2017-02-08] MEDS: ASPIRIN 81 MG TAB.CHEW PO SCH (08:06)
[2017-02-08] MEDS: LORATADINE 10 MG TABLET PO SCH (08:06)
[2017-02-08] MEDS: METFORMIN XR 500 MG TAB.SR.24H PO SCH (08:07)
[2017-02-08] MEDS: ALLOPURINOL 100 MG TABLET PO SCH (08:08)
[2017-02-08] MEDS: hydrALAZINE HCL 50 MG TABLET PO SCH (08:08)
[2017-02-08] MEDS: FAMOTIDINE/PF INJ 20 MG/2 ML VIAL IV SCH (08:56)
--- NOTE | 2017-02-08 09:53 | NUR ---
SURGICAL DEVICE SALES REPRESENTATIVE NOTE NEW HL ON LT FA ALFRED 24 INSERTED WITH GOOD BLOOD RETURN
[2017-02-08] MEDS: IV NS 0.9% 1,000 ML IV PRN (10:42)
--- NOTE | 2017-02-08 12:00 | NUR ---
REGISTRAR NURSES' REGISTRY NOTE HAVING LUNCH , ABLE TO FEED SELF ,NOT IN ACUTE DISTRESS, WILL CONT TO MONITOR CLOSELY
--- NOTE | 2017-02-08 15:00 | NUR ---
MS RN NOTE CARL WARNER YOUTH WORKER SPOKE WITH SON OF PATIENT, NOT IN ACUTE DISTRESS, TELE REMOVED ORDERED
--- NOTE | 2017-02-08 18:57 | NUR ---
MS RN NOTE CONT ON IVF ORDERED ,WILL CONT TO MONITOR CLOSELY
[2017-02-08] MEDS ORDERED: hydrALAZINE HCL IV 20 MG VIAL IV ONE (21:00)
[2017-02-08] MEDS ORDERED: hydrALAZINE HCL IV 20 MG VIAL IV PRN (21:00)
[2017-02-08] MEDS ORDERED: hydrALAZINE HCL IV 20 MG VIAL ONE (21:00)
[2017-02-08] MEDS: DONEPEZIL 5 MG TABLET PO SCH (21:09)
[2017-02-08] MEDS: QUETIAPINE FUMARATE 25 MG TABLET PO SCH (21:09)
[2017-02-08] MEDS: DIVALPROEX SODIUM 500 MG TABLET.DR PO SCH (21:09)
[2017-02-08] MEDS: PRAVASTATIN SODIUM 20 MG TABLET PO SCH (21:11)
--- NOTE | 2017-02-08 22:00 | NUR ---
RN NOTE INFORMED RITA [facility] PRODUCTS ASSEMBLER THAT PT BLOOD PRESSURE IS ELEVATED @ 189/81. RECEIVED ORDERS TO GIVE APRESOLINE 10MG IV ONE TIME. READ BACK ORDERS PERFORMED.WILL RECHECK PRESSURE IN 30MIN.
[2017-02-09 04:00] VITALS: BP 163/73
--- NOTE | 2017-02-09 06:23 | NUR ---
RN CLOSING NOTE PT REMAINS IN NO ACUTE DISTRESS IN BED. PT DID NOT HAVE ANY SIGNIFICANT CHANGE IN CONDITION DURING SHIFT. ALL NEEDS MET, ALL ORDERS CARRIED OUT. WILL ENDORSE CARE TO AM RN FOR CONTINUITY OF CARE.
--- NOTE | 2017-02-09 07:20 | NUR ---
RN NOTES RECEIVED PT FROM CALL MANAGER IN STABLE CONDITION A&0X3, ON ROOM AIR SATING WELL NO SOB OR DISTRESS NOTED. LUIS 20G IV SITE INTACT WITH IVF AT 75ML/HR. NO COMPLAINTS OF PAIN. BED LOCKED AND IN LOWEST POSITION, CALL LIGHT WITHIN REACH, SIDE RAILS UPX3, WILL CONT TO FREDERIC.
[2017-02-09 08:00] VITALS: BP 191/81
[2017-02-09] MEDS: FAMOTIDINE/PF INJ 20 MG/2 ML VIAL IV SCH (08:10)
[2017-02-09] MEDS: DOCUSATE SODIUM 100 MG CAPSULE PO SCH ×2 (08:11→16:58)
[2017-02-09] MEDS: ASPIRIN 81 MG TAB.CHEW PO SCH (08:11)
[2017-02-09] MEDS: ALLOPURINOL 100 MG TABLET PO SCH (08:11)
[2017-02-09] MEDS: CARVEDILOL 6.25 MG TABLET PO SCH ×2 (08:11→16:57)
[2017-02-09] MEDS: LISINOPRIL (20MG) 20 MG TABLET PO SCH (08:12)
[2017-02-09] MEDS: METFORMIN XR 500 MG TAB.SR.24H PO SCH (08:12)
[2017-02-09] MEDS: hydrALAZINE HCL 50 MG TABLET PO SCH (08:12)
[2017-02-09] MEDS: LORATADINE 10 MG TABLET PO SCH (08:13)
[2017-02-09] MEDS: glipiZIDE 5 MG TABLET PO SCH ×2 (08:13→16:58)
[2017-02-09] MEDS: ACETAMINOPHEN 325 MG TABLET PO PRN (09:49)
[2017-02-09] MEDS: ANCEF 1 GM/50 ML D5W IV SCH ×4 (09:54→17:17)
[2017-02-09 10:00] VITALS: BP 137/59
[2017-02-09 16:00] VITALS: BP 189/79
[2017-02-09] MEDS: CLONIDINE HCL 0.1 MG TABLET PO PRN (16:57)
--- NOTE | 2017-02-09 18:21 | NUR ---
RN NOTES PT REMAINED IN STABLE CONDITION THROUGHOUT THE SHIFT, NO SIGNIFICANT CHANGES, ALL NEEDS MET, NO COMPLAINTS OF PAIN. BED LOCKED AND IN LOWEST POSITION, CALL LIGHT WITHIN REACH, SIDE RAILS UPX3, WILL ENDORSE TO ONCOMING RN.
[2017-02-09 20:00] VITALS: BP 146/75
--- NOTE | 2017-02-09 20:00 | NUR ---
RN INITIAL NOTES RECEIVED PT IN STABLE CONDITION, PT IS RESTING IN BED, NO COMPLAINTS OF PAIN. BED LOCKED AND IN LOWEST POSITION, CALL LIGHT WITHIN REACH, SIDE RAILS UPX3, WILL CONTINUE TO MONITOR PT.
[2017-02-09] MEDS: PRAVASTATIN SODIUM 20 MG TABLET PO SCH (22:00)
[2017-02-09] MEDS: DONEPEZIL 5 MG TABLET PO SCH (22:01)
[2017-02-09] MEDS: QUETIAPINE FUMARATE 25 MG TABLET PO SCH (22:01)
[2017-02-09] MEDS: DIVALPROEX SODIUM 500 MG TABLET.DR PO SCH (22:01)
[2017-02-10] MEDS: ANCEF 1 GM/50 ML D5W IV SCH ×6 (01:14→17:22)
[2017-02-10 04:00] VITALS: BP 185/73
[2017-02-10] MEDS: CLONIDINE HCL 0.1 MG TABLET PO PRN (04:20)
--- NOTE | 2017-02-10 04:30 | NUR ---
RN NOTE PT B/P WAS 185/73 CATAPRES WAS GIVEN PRN
--- NOTE | 2017-02-10 06:35 | NUR ---
RN CLOSING NOTES PT B/P WAS ELEVATED AT 0400, CATAPRES PRN WAS TULIO. PT IS RESTING IN BED, NO COMPLAINTS OF PAIN.ALL MEDS GIVING. ALL NEED ATTENDED. BED LOCKED AND IN LOWEST POSITION, BED ALARM ON,CALL LIGHT WITHIN REACH, SIDE RAILS UPX3, WILL ENDORSE TO AM RN.
[2017-02-10 08:00] VITALS: BP 174/60
--- NOTE | 2017-02-10 08:00 | NUR ---
MS RN NOTE PATIENT IN BED , ALERT , ORIENTED , ALL NEEDS ATTENDED ,ON HL ON LUIS INTACT , NO S]S INFECTION NOTED , BED IN LOWEST AND LOCKED POSITION , PLAN OF CARE DISCUSSED WITH PATIENT , CALL LIGHT WITHIN REACH , NO SOB NOTED ,WILL CONT TO MONITOR CLOSELY
[2017-02-10] MEDS: FAMOTIDINE/PF INJ 20 MG/2 ML VIAL IV SCH (08:04)
[2017-02-10] MEDS: DOCUSATE SODIUM 100 MG CAPSULE PO SCH ×2 (08:04→16:23)
[2017-02-10] MEDS: glipiZIDE 5 MG TABLET PO SCH ×2 (08:05→16:22)
[2017-02-10] MEDS: LISINOPRIL (20MG) 20 MG TABLET PO SCH (08:05)
[2017-02-10] MEDS: METFORMIN XR 500 MG TAB.SR.24H PO SCH (08:05)
[2017-02-10] MEDS: LORATADINE 10 MG TABLET PO SCH (08:06)
[2017-02-10] MEDS: hydrALAZINE HCL 50 MG TABLET PO SCH (08:06)
[2017-02-10] MEDS: ALLOPURINOL 100 MG TABLET PO SCH (08:06)
[2017-02-10] MEDS: ASPIRIN 81 MG TAB.CHEW PO SCH (08:07)
[2017-02-10] MEDS: CARVEDILOL 6.25 MG TABLET PO SCH ×2 (08:07→16:23)
[2017-02-10] MEDS: IV NS 0.9% 1,000 ML IV PRN (09:20)
[2017-02-10 11:29] VITALS: BP 155/56
--- NOTE | 2017-02-10 12:00 | NUR ---
MS RN NOTE HAVING LUNCH ,ABLE TO EAT SELF NOT IN ACUTE DISTRESS , ALL NEEDS ATTENDED
[2017-02-10 16:00] VITALS: BP 167/70
[2017-02-10] MEDS ORDERED: SULF1TAB48 PO (16:10)
--- NOTE | 2017-02-10 16:30 | NUR ---
MS ALANA ABREU RN COLD ROLL CATCHER OK TO DISCHARGE WILL ARRANGE WITH ROAD REPAIRER ,WILL F\U
--- NOTE | 2017-02-10 17:17 | NUR ---
MS RN NOTE PER BRADY WARNER NUTRITIONAL CHEMIST HOLD DISCHARGE FOR TODAY , NEED PT EVAL FIRST , WILL F\U WITH PT , WILL CONT CARE NOTIN ACUTE DISTRESS, MADE BM ,KEEP CLEAN DRY
--- NOTE | 2017-02-10 18:28 | NUR ---
MS RN NOTE ALL NEEDS ATTENDED, KEEP CLEAN DRY , CALL LIGHT WITHIN REACH ,WILL CONT TO MONITOR CLOSELY
[2017-02-10 20:00] VITALS: BP 165/62
--- NOTE | 2017-02-10 20:00 | NUR ---
RN INITIAL NOTE RECEIVED PATIENT IN BED , ALERT & ORIENTED , LUIS INTACT WITH 0.9NS 75 , NO S]S DISTRESS NOTED , BED IN LOWEST AND LOCKED POSITION , PLAN OF CARE DISCUSSED WITH PATIENT , CALL LIGHT WITHIN REACH , WILL CONT TO MONITOR CLOSELY
[2017-02-10] MEDS: DONEPEZIL 5 MG TABLET PO SCH (21:30)
[2017-02-10] MEDS: DIVALPROEX SODIUM 500 MG TABLET.DR PO SCH (21:30)
[2017-02-10] MEDS: QUETIAPINE FUMARATE 25 MG TABLET PO SCH (21:31)
[2017-02-10] MEDS: PRAVASTATIN SODIUM 20 MG TABLET PO SCH (21:31)
[2017-02-10] MEDS: ACETAMINOPHEN 325 MG TABLET PO PRN (21:31)
[2017-02-11] VITALS (11 sets, daily range): BP systolic 97–207; BP diastolic 32–89
[2017-02-11] MEDS: IV NS 0.9% 1,000 ML IV PRN (01:22)
[2017-02-11] MEDS: ANCEF 1 GM/50 ML D5W IV SCH ×4 (01:22→10:35)
[2017-02-11 06:45] LABS: BASOPHILS % (AUTO) 0.4 % (0.0-2.0); EOSINOPHILS % (AUTO) 0.9 % (0.0-6.0); HEMATOCRIT 29 % (33-45); HEMOGLOBIN 9.8 g/dL (11.5-14.8); LYMPHOCYTES # (AUTO) 2.6 /CMM (0.8-4.8); LYMPHOCYTES % (AUTO) 49.8 % (20.0-44.0); MEAN CORPUSCULAR HEMOGLOBIN 30 PG (26.0-33.0); MEAN CORPUSCULAR HGB CONC 34 g/dl (31.0-36.0); MEAN CORPUSCULAR VOLUME 89 fL (82-100); MONOCYTES # (AUTO) 0.7 /CMM (0.1-1.30); MONOCYTES % (AUTO) 13.3 % (2.0-12.0); NEUTROPHILS # (AUTO) 1.8 /CMM (1.8-8.9); NEUTROPHILS % (AUTO) 35.6 % (43.0-81.0); PLATELET COUNT (AUTO) 166 /CMM (150-450); RDW COEFFICIENT OF VARIATION 14.3 (11.5-15.0); RED BLOOD CELL COUNT(AUTO) 3.25 MIL/uL (4.0-5.2); WHITE BLOOD COUNT (AUTO) 5.2 K/uL (4.3-11.0)
[2017-02-11 07:13] LABS: CALCIUM, SERUM 9.1 mg/dL (8.5-10.1); CARBON DIOXIDE 24 mmol/L (21-32); CHLORIDE 108 mmol/L (98-107); CREATININE 0.9 mg/dL (0.6-1.3); GLUCOSE 100 mg/dL (74-106); MAGNESIUM 1.8 mg/dL (1.8-2.4); PHOSPHORUS 3.7 mg/dL (2.5-4.9); POTASSIUM 4.2 mmol/L (3.5-5.1); SODIUM SERUM 142 mmol/L (136-145); UREA NITROGEN, BLOOD 15 mg/dL (7-18)
--- NOTE | 2017-02-11 07:30 | NUR ---
MS RN OPENING RECEIVED PATIENT A/OX4 DENIES SOB DIFFICULTY BREATHING BUT STATES SHE HAS A HEADACHE AND VISION IS A BIT BLURRY. WILL CHECK PATIENT BP. ALL NEEDS IN REACH, BED LOWERED AND LOCKED, RAILS UPX3 FOR SAFETY WITH BED ALARM ON. PATIENT STATES NO NEEDS AT THIS TIME. WILL ROUND Q2H OR LESS PER NEEDS.
--- NOTE | 2017-02-11 07:50 | NUR ---
MS RN NOTES PATIENT BP ELEVATED WILL GIVE ORDERED AM MEDICATIONS AND MESSAGE LEFT FOR MD FUNERAL DRIVER.
[2017-02-11] MEDS: glipiZIDE 5 MG TABLET PO SCH ×2 (08:00→17:03)
[2017-02-11] MEDS: ASPIRIN 81 MG TAB.CHEW PO SCH (08:00)
[2017-02-11] MEDS: LISINOPRIL (20MG) 20 MG TABLET PO SCH (08:00)
[2017-02-11] MEDS: METFORMIN XR 500 MG TAB.SR.24H PO SCH (08:00)
[2017-02-11] MEDS: hydrALAZINE HCL 50 MG TABLET PO SCH (08:00)
[2017-02-11] MEDS: FAMOTIDINE/PF INJ 20 MG/2 ML VIAL IV SCH (08:00)
[2017-02-11] MEDS: ALLOPURINOL 100 MG TABLET PO SCH (08:00)
[2017-02-11] MEDS: CARVEDILOL 6.25 MG TABLET PO SCH (08:01)
[2017-02-11] MEDS: LORATADINE 10 MG TABLET PO SCH (08:02)
[2017-02-11] MEDS: DOCUSATE SODIUM 100 MG CAPSULE PO SCH ×2 (08:06→16:51)
--- NOTE | 2017-02-11 08:10 | NUR ---
MS RN NOTES SPOKE WITH RELIEF WORKER BRUCE TO NOTIFY PATIENT SYMPTOMATIC HTN. UPDATED ON TRENDING OF BLOOD PRESSURES CONSTANTLY ELEVATED. PATIENT C/O HEADACHE AND BLURRY VISION. MD AWARE AM MEDICATIONS GIVEN. PER MD ORDER 20MG IVP HYDRALAZINE ONCE, TRANSFER TO TELE MONITORING, AND AMLODIPINE 10MG PO ONCE.
[2017-02-11] MEDS ORDERED: AMLODIPINE BESYLATE 10 MG TABLET PO STA (08:12)
[2017-02-11] MEDS ORDERED: hydrALAZINE HCL IV 20 MG VIAL IV STA (08:12)
--- NOTE | 2017-02-11 08:50 | NUR ---
JUNIOR ESTIMATOR NOTES RECHECKED PATIENT BP AND WNL. HOLDING HYDRALAZINE AND AMLODIPINE AT THIS TIME. PATIENT STATES HEADACHE REDUCED AND VISION BETTER AT THIS TIME. ATE 100% OF BREAKFAST AND APPEARS STABLE
[2017-02-11] MEDS ORDERED: AMLODIPINE BESYLATE 5 MG TABLET PO SCH (10:30)
--- NOTE | 2017-02-11 10:46 | NUR ---
BUNGY JUMP MASTER NOTES PHYSICAL THERAPY UNABLE TO AMBULATE PATIENT SHE IS ORTHOSTATIC
--- NOTE | 2017-02-11 12:25 | NUR ---
ms rn notes patient bp evelated again. per clonidine rx only to be given if sbp over 170. patient 162
[2017-02-11] MEDS ORDERED: AMLO5TAB2 PO (13:16)
[2017-02-11] MEDS ORDERED: HYDR-4075 PO (13:17)
--- NOTE | 2017-02-11 14:16 | NUR ---
MS RN NOTES NOTIFIED BRADY JEAN CONSULTED FOR LABILE BP AND ORTHOSTATIC BP AND THAT AN ECHO IS PENDING. PER BRADY OK TO DC PATIENT ONCE ECHO COMPLETED. SPOKE WITH LEONEL RUIZ TO GET TIME OF ECHO; UNABLE TO GIVE. WILL F/U. PER ARMANI LI PATIENT WILL GO TO [facility] TODAY.
--- NOTE | 2017-02-11 14:30 | NUR ---
MS RN NOTES SPOKE WITH PATIENT NURSING HOME AND THEY STATED THEY WILL BRING PATIENT CLOTHING AND SHOES FOR PATIENT TO SNF WHEN DISCHARGED.
--- NOTE | 2017-02-11 15:07 | NUR ---
MS RN NOTES CALLED [facility] AND THEY DO NOT HAVE VACCINE RECORDS ON PATIENT. PATIENT UNABLE TO REMEMBER WHEN SHE RECEIVED BOTH. PATIENT CONFUSED AT TIMES AND FORGETFUL
--- NOTE | 2017-02-11 15:15 | NUR ---
MS RN NOTES [facility]
[2017-02-11] MEDS: CLONIDINE HCL 0.1 MG TABLET PO PRN (15:22)
--- NOTE | 2017-02-11 16:49 | NUR ---
MS RN NOTES CALLED SNF AND GAVE REPORT TO ALANA PECK.
[2017-02-11] MEDS ORDERED: CARVEDILOL 6.25 MG TABLET PO SCH (17:00)
--- NOTE | 2017-02-11 17:43 | NUR ---
MS SURGICAL SCRUB TECHNICIAN PATIENT LEFT IN STABLE CONDITION. VS STABLE FOR DISCHARGE. PATIENT UNABLE TO SIGN DC MATERIAL 2 RN SIGNED. PATIENT SON AWARE AND UPDATED ON DC AND PATIENT LOCATION OF DC. PATIENT IV ACCESS REMOVED WITH PRESSURE AND DRESSING APPLIED NO BLEEDING. CATH TIP INTACT. NO S/S INFECTION. PATIENT SKIN CLEANSED AND DRY. ALL NEEDS WENT WITH PATIENT. LIV WARNER AT [facility] UPDATED ON PATIENT CONDITION.
[2017-02-11] MEDS ORDERED: DOXAZOSIN MESYLATE (1 MG) 1 MG TABLET PO SCH (22:00)
== END 2017-02-11 17:54 | DRG 683 ==
LOC: ER 06:53 → TELE1 10:21 → MEDSG1 02-08 13:58 → TELE1 02-11 08:26 → MEDSG1 02-11 12:18
PROVIDERS: ADMIT Family Medicine; ATTEND Family Medicine
DX: N17.0 Acute kidney failure with tubular necrosis (principal); N39.0 Urinary tract infection, site not specified; E11.22 Type 2 diabetes mellitus with diabetic chronic kidney disease; D63.8 Anemia in other chronic diseases classified elsewhere; E83.42 Hypomagnesemia; E11.9 Type 2 diabetes mellitus without complications; B96.20 Unspecified Escherichia coli [E. coli] as the cause of diseases classified elsewhere; E78.5 Hyperlipidemia, unspecified; E86.0 Dehydration; R55 Syncope and collapse; F03.90 Unspecified dementia, unspecified severity, without behavioral disturbance, psychotic disturbance, mood disturbance, and anxiety; G40.909 Epilepsy, unspecified, not intractable, without status epilepticus; I12.9 Hypertensive chronic kidney disease with stage 1 through stage 4 chronic kidney disease, or unspecified chronic kidney disease; N18.9 Chronic kidney disease, unspecified; Z79.84 Long term (current) use of oral hypoglycemic drugs; Z79.899 Other long term (current) drug therapy; Z86.59 Personal history of other mental and behavioral disorders; Z91.81 History of falling; M10.9 Gout, unspecified
CPT/HCPCS: 36415; 70450-TC; 71010-TC; 72125-TC; 80048-TC; 80076-TC; 80164-TC; 81000-TC; 82962-TC; 83735-TC; 84100-TC; 84484-TC; 85025-TC; 85730-TC; 87081-TC; 87086-TC; 87186-TC; 93307-TC; 95819-TC; A6402; J0360; J0690; J3475; J3490; J7030; J7060

== ENCOUNTER 2017-03-09 19:08 | Inpatient (IN) | payer MEDICARE, MEDICAID ==
[~2017-03-09] VITALS: Ht 167.6 cm; Wt 63.5 kg
[~2017-03-09 19:08] MED LIST changes: +AMLO5TAB2 PO; +DIVA500T4 PO; +HYDR-4075 PO; -HYDR100T27 PO; +SULF1TAB48 PO
--- NOTE | 2017-03-09 19:30 | NUR ---
PT RECEIVED FROM SNF FROM RA C/O WITNESSED SYNCOPE EPISODE X1 TIME. NO SOB AT THIS TIME WITH ADEQUATE CHEST RISE AND FALL. NO PAIN AT THIS MOMENT. VSS NAD A/0X2 SLIGHTLY CONFUSED/SOFT VOICE. WILL CONTINUE TO MONITOR FOR ANY CHANGES
--- NOTE | 2017-03-09 19:38 | NUR ---
EKG AT BEDSIDE
--- NOTE | 2017-03-09 19:40 | NUR ---
LAB AT BEDSIDE
--- NOTE | 2017-03-09 19:47 | NUR ---
BRANDS EDITOR AT BEDSIDE
[2017-03-09 19:48] LABS: BASOPHILS # (AUTO) 0.1 /CMM (0.0-0.2); BASOPHILS % (AUTO) 1.3 % (0.0-2.0); EOSINOPHILS % (AUTO) 0.2 % (0.0-6.0); HEMATOCRIT 35 % (33-45); HEMOGLOBIN 12.3 g/dL (11.5-14.8); LYMPHOCYTES % (AUTO) 32.7 % (20.0-44.0); MEAN CORPUSCULAR HEMOGLOBIN 31 PG (26.0-33.0); MEAN CORPUSCULAR HGB CONC 35 g/dl (31.0-36.0); MEAN CORPUSCULAR VOLUME 88 fL (82-100); MONOCYTES # (AUTO) 1.2 /CMM (0.1-1.30); MONOCYTES % (AUTO) 12.9 % (2.0-12.0); NEUTROPHILS # (AUTO) 4.9 /CMM (1.8-8.9); NEUTROPHILS % (AUTO) 52.9 % (43.0-81.0); PLATELET COUNT (AUTO) 174 /CMM (150-450); RDW COEFFICIENT OF VARIATION 13.5 (11.5-15.0); RED BLOOD CELL COUNT(AUTO) 4.02 MIL/uL (4.0-5.2); WHITE BLOOD COUNT (AUTO) 9.2 K/uL (4.3-11.0)
--- NOTE | 2017-03-09 19:52 | NUR ---
OFF TO CT SCAN
[2017-03-09 20:02] LABS: INR 1.12 (0.87-1.13)
[2017-03-09 20:05] LABS: ALANINE AMINOTRANSFERASE 88 U/L (12-78); ALBUMIN 3.7 g/dL (3.4-5.0); ALKALINE PHOSPHATASE 99 U/L (46-116); ASPARTATE AMINOTRANSFERASE 80 U/L (15-37); BILIRUBIN,DIRECT 0.1 mg/dL (0.0-0.2); BILIRUBIN,TOTAL 0.7 mg/dL (0.2-1.0); CALCIUM, SERUM 9.6 mg/dL (8.5-10.1); CARBON DIOXIDE 22 mmol/L (21-32); CHLORIDE 101 mmol/L (98-107); CREATININE 1.9 mg/dL (0.6-1.3); GLUCOSE 235 mg/dL (74-106); SODIUM SERUM 136 mmol/L (136-145); TOTAL PROTEIN, SERUM 7.7 g/dL (6.4-8.2); UREA NITROGEN, BLOOD 54 mg/dL (7-18)
[2017-03-09 20:07] LABS: TROPONIN I 0.088 ng/mL (0.00-0.056)
[2017-03-09] MEDS ORDERED: IV NS 0.9% 1,000 ML BAG IV ONE (20:30)
[2017-03-09] MEDS ORDERED: ASPIRIN 81 MG TAB.CHEW PO ONE (20:30)
[2017-03-09] MEDS ORDERED: ASPIRIN 81 MG TAB.CHEW ONE (20:36)
[2017-03-09 20:59] LABS: APPEARANCE,URINE Cloudy (CLEAR); BILIRUBIN,URINE MODERATE (NEGATIVE); BLOOD, URINE Negative Ery/uL (NEGATIVE); COLOR,URINE Dark (YELLOW); KETONES,URINE 15 (NEGATIVE); LEUKOCYTE ESTERASE ,URINE Small (NEGATIVE); NITRITE, URINE Negative (NEGATIVE); PROTEIN,URINE 30 mg/dl (NEGATIVE); UGLUCOSE Negative (NEGATIVE); UROBILINOGEN,URINE 0.2 EU/dL (0.2)
[2017-03-09 21:14] LABS: BACTERIA,URINE Many /HPF (None Seen); RBC,URINE 0-2 /HPF (0-2)
[2017-03-09 21:15] LABS: SQUAMOUS EPITHELIAL CELL,UR Moderate /HPF (None Seen); URINE AMORPHOUS URATE Few /HPF (None Seen)
[2017-03-09] MEDS ORDERED: CEFTRIAXONE 1 G VIAL ONE (21:27)
[2017-03-09] MEDS ORDERED: CEFTRIAXONE 1 G in IV D5W 50 ML IV SCH (21:30)
--- NOTE | 2017-03-09 21:30 | NUR ---
REPORT GIVEN TO MAGDY
--- NOTE | 2017-03-09 21:50 | NUR ---
ASSISTANT SCIENTIST INITIAL NOTES PT ARRIVED TO FLOOR VIA GURNEY. NO SIGNS OF SOB OR DISTRESS, BREATHING EVENLY AND UNLABORED ON RA. CAIN CATHETER IS INTACT. MED RECON IS COMPLETE. SKIN IS INTACT, GROIN REDNESS NOTED AND PICTURES PLACED IN CHART. PT DENIES PAIN AT THIS TIME. BED IS IN LOW AND LOCKED POSITION, CALL LIGHT WITHIN REACH. AWAITING ORDERS, WILL CONTINUE TO MONITOR PT
[2017-03-09] MEDS: BLOOD SUGAR DIAGNOSTIC 1 EACH STRIP VI SCH (22:00)
[2017-03-09] MEDS ORDERED: ACETAMINOPHEN 325 MG TABLET PO PRN (22:00)
[2017-03-09] MEDS ORDERED: hydrALAZINE HCL 10 MG TABLET PO PRN (22:00)
[2017-03-09] MEDS ORDERED: ONDANSETRON HCL/PF 4 MG/2 ML VIAL IVP PRN (22:00)
[2017-03-09] MEDS ORDERED: INSULIN REGULAR, HUMAN 100 UNIT/ML 3 ML VIAL SQ PRN (22:00)
[2017-03-09] MEDS ORDERED: *INSULIN REGULAR(HUMULIN R)HUM 100 UNIT/ML VIAL SQ PRN (22:00)
[2017-03-09] MEDS ORDERED: PRAVASTATIN SODIUM 20 MG TABLET PO SCH (22:00)
[2017-03-09] MEDS ORDERED: DEXTROSE 50%-WATER 50 ML DISP.SYRIN IV PRN (22:00)
[2017-03-09] MEDS: IV NS 0.9% 1,000 ML IV PRN (22:34)
[2017-03-09 23:00] VITALS: BP 156/72
[2017-03-10] VITALS (7 sets, daily range): BP systolic 142–198; BP diastolic 61–92
[2017-03-10] MEDS ORDERED: hydrALAZINE HCL 10 MG TABLET ONE (04:44)
[2017-03-10] MEDS: BLOOD SUGAR DIAGNOSTIC 1 EACH STRIP VI SCH ×4 (06:10→21:33)
--- NOTE | 2017-03-10 06:24 | NUR ---
MULTIMEDIA ARTIST CLOSING NOTES PT IS IN BED RESTING, AWAKE AND ALERT TO SELF. BREATHING EVENLY AND UNLABORED ON RA. NO SIGNS OF SOB OR DISTRESS. IV ACCESS IS INTACT AND PATENT WITH NS INFUSING AT 80 ML/HR. TELE MONITOR SHOWING SR 66. CAIN CATHETER DRAINED 50 ML, BLADDER SCAN SHOWED 75ML. CAIN WAS IRRIGATED AND ADVANCED. ALL NEEDS WERE ANTICIPATED AND MET. BED IS IN LOW AND LOCKED POSITION, CALL LIGHT WITHIN REACH. WILL CONTINUE TO MONITOR PT
[2017-03-10 07:06] LABS: BASOPHILS % (AUTO) 0.4 % (0.0-2.0); EOSINOPHILS % (AUTO) 0.2 % (0.0-6.0); HEMATOCRIT 30 % (33-45); HEMOGLOBIN 10.4 g/dL (11.5-14.8); LYMPHOCYTES # (AUTO) 3.5 /CMM (0.8-4.8); LYMPHOCYTES % (AUTO) 48.5 % (20.0-44.0); MEAN CORPUSCULAR HEMOGLOBIN 31 PG (26.0-33.0); MEAN CORPUSCULAR HGB CONC 35 g/dl (31.0-36.0); MEAN CORPUSCULAR VOLUME 90 fL (82-100); MONOCYTES # (AUTO) 1.1 /CMM (0.1-1.30); MONOCYTES % (AUTO) 15.1 % (2.0-12.0); NEUTROPHILS # (AUTO) 2.6 /CMM (1.8-8.9); NEUTROPHILS % (AUTO) 35.8 % (43.0-81.0); PLATELET COUNT (AUTO) 131 /CMM (150-450); RDW COEFFICIENT OF VARIATION 14.8 (11.5-15.0); RED BLOOD CELL COUNT(AUTO) 3.34 MIL/uL (4.0-5.2); WHITE BLOOD COUNT (AUTO) 7.3 K/uL (4.3-11.0)
[2017-03-10 07:20] LABS: CALCIUM, SERUM 8.7 mg/dL (8.5-10.1); CARBON DIOXIDE 22 mmol/L (21-32); CHLORIDE 105 mmol/L (98-107); CREATININE 1.3 mg/dL (0.6-1.3); GLUCOSE 111 mg/dL (74-106); MAGNESIUM 1.8 mg/dL (1.8-2.4); PHOSPHORUS 2.9 mg/dL (2.5-4.9); POTASSIUM 3.4 mmol/L (3.5-5.1); SODIUM SERUM 140 mmol/L (136-145); UREA NITROGEN, BLOOD 51 mg/dL (7-18)
--- NOTE | 2017-03-10 08:00 | NUR ---
tele instructor decorating: initial assessment received pt in awake, a/ox2-3 with periods of forgetfulness and disorientation to situation. reality orientation provided prn. tele sr. no c/o pain or any discomfort. instructed to call for assistance. will continue to monitor.
[2017-03-10] MEDS: ALLOPURINOL 100 MG TABLET PO SCH (08:51)
[2017-03-10] MEDS: glipiZIDE 5 MG TABLET PO SCH ×2 (08:51→16:44)
[2017-03-10] MEDS: LISINOPRIL (20MG) 20 MG TABLET PO SCH (08:51)
[2017-03-10] MEDS: SULFAMETH/TRIMETH 800/160 MG 1 UDTAB TABLET PO SCH ×2 (08:51→16:44)
[2017-03-10] MEDS: POTASSIUM CHLORIDE 20 MEQ TAB.PRT.SR PO SCH ×3 (08:51→11:00)
[2017-03-10] MEDS: DOCUSATE SODIUM 100 MG CAPSULE PO SCH ×2 (08:51→16:48)
[2017-03-10] MEDS: ASPIRIN 81 MG TAB.CHEW PO SCH (08:51)
[2017-03-10] MEDS: LORATADINE 10 MG TABLET PO SCH (08:51)
[2017-03-10] MEDS: PANTOPRAZOLE 40 MG TABLET.DR PO SCH (08:52)
[2017-03-10 10:16] LABS: EOSINOPHILS % (MANUAL) 1 % (0-4); LYMPHOCYTES % (MANUAL) 44 % (16-48); MONOCYTES % (MANUAL) 15 % (0-11.0); NEUTROPHILS % (MANUAL) 40 (42-76)
[2017-03-10] MEDS ORDERED: POTASSIUM CHLORIDE 20 MEQ TAB.PRT.SR PO SCH (13:00)
--- NOTE | 2017-03-10 13:30 | NUR ---
m/s wall insulation sprayer: notes p.t. eval and tx done, tommy. well. pt can walk with nursing per p.t. pt aware. instructed to call for assistance. will continue to monitor.
--- NOTE | 2017-03-10 14:30 | NUR ---
m/s coding auditor: notes bed alarmed, pt attempting to get out of bed. pt appears confused. reality orientation provided prn. assisted to bathroom, reminded pt that she a rodarte catheter. assisted back to bed. repositioned. the second i leave, pt trying to get out of bed. 1:1 intervention provided prn. cn made aware. will continue to monitor.
[2017-03-10] MEDS: IV NS 0.9% 1,000 ML IV PRN (14:34)
--- NOTE | 2017-03-10 14:45 | NUR ---
m/s fire and safety helper: notes pt continue attempting to get out of bed. reality orientation provided prn. will continue to monitor.
--- NOTE | 2017-03-10 15:30 | NUR ---
m/s french tutor: notes up in w/c at this time and brought to nursing station, but pt likes to wheel herself. reality orientation provided prn. will continue to monitor.
--- NOTE | 2017-03-10 15:47 | NUR ---
Patient was recently discharged back to [facility]. Patient resides at [facility] [phone], ambulates with a walker, requires min assist with adl's. Jada can provide transportation once discharge. Addendum: 03/10/17 at 1547 by SALOMON WREN RN Amended: Links added.
--- NOTE | 2017-03-10 17:41 | NUR ---
m/s bow maker machine tender: notes pt ate dinner in chair, assisted back to bed. us tech to do carotid. pt made aware. instructed to call for assistance. will continue to monitor.
--- NOTE | 2017-03-10 19:25 | NUR ---
RN OPEN NOTES RECEIVED PATIENT AWAKE SITTING IN WHEELCHAIR IN FRONT OF NURSES STATION. A/O X2. NO SIGNS OF DISTRESS OR DISCOMFORT. BREATHING EVEN AND UNLABORED. IV ACCESS IN RAC, PATENT AND INTACT, NO SIGNS OF REDNESS OR INFILTRATION. WILL CONTINUE TO MONITOR.
--- NOTE | 2017-03-10 19:30 | NUR ---
m/s garment manufacturer: notes report given to debra (rn) for continuity of care. pt up in chair in the nurse's station at this time.
[2017-03-10] MEDS ORDERED: ATORVASTATIN 10 MG TABLET PO SCH (22:00)
[2017-03-10] MEDS ORDERED: DIVALPROEX SODIUM 500 MG TABLET.DR PO SCH (22:00)
[2017-03-11] MEDS: BLOOD SUGAR DIAGNOSTIC 1 EACH STRIP VI SCH ×2 (06:43→12:29)
--- NOTE | 2017-03-11 07:01 | NUR ---
RN CLOSING NOTES PATIENT AWAKE SITTING IN WHEELCHAIR IN FRONT OF NURSES STATION. A/O X2. NO SIGNS OF DISTRESS OR DISCOMFORT. BREATHING EVEN AND UNLABORED. IV ACCESS IN RAC, PATENT AND INTACT, NO SIGNS OF REDNESS OR INFILTRATION. ALL NEEDS MET. NO SIGNIFICANT CHANGES THROUGH THE NIGHT. WILL ENDORSE TO AM SHIFT FOR LIEN. . Addendum: 03/11/17 at 0704 by RUBA RAMIRES RN HAS F/C INTACT, WITH CLEAR YELLOW FLUID DRAINING.
--- NOTE | 2017-03-11 07:15 | NUR ---
RN OPENING NOTES. PT RECEIVED A&0X1 SITTING IN WHEEL CHAIR AT DOOR, PT WITH VERY POOR RECOLLECTION AND SOME CONFUSION. PT TOLERATING ROOM AIR WITHOUT SOB AND SAO2 WNL AT 98%. PT DENIES PAIN. PT WITH IVC AT R AC, INTACT BUT PT REUSES LINE CARE/CHECK. ENDORSED FORM NIGHT NURSE PT NEEDING AM INSULIN DOSE. PT BRIEFED ON TODAY'S POC BUT REMAINS UNCLEAR, PT IS WITHOUT CONCERN OR COMPLAINT AT THIS TIME.
[2017-03-11 08:00] VITALS: BP 159/90
--- NOTE | 2017-03-11 09:00 | NUR ---
RN NOTES. PT REFUSING INSULIN. PT REFUSING BLOOD DRAW. PT DID TAKE PO MEDS IN PUDDING.
[2017-03-11] MEDS: SULFAMETH/TRIMETH 800/160 MG 1 UDTAB TABLET PO SCH (09:21)
[2017-03-11] MEDS: LORATADINE 10 MG TABLET PO SCH (09:21)
[2017-03-11] MEDS: glipiZIDE 5 MG TABLET PO SCH (09:21)
[2017-03-11] MEDS: ALLOPURINOL 100 MG TABLET PO SCH (09:21)
[2017-03-11] MEDS: LISINOPRIL (20MG) 20 MG TABLET PO SCH (09:22)
[2017-03-11] MEDS: PANTOPRAZOLE 40 MG TABLET.DR PO SCH (09:22)
[2017-03-11] MEDS: ASPIRIN 81 MG TAB.CHEW PO SCH (09:22)
[2017-03-11] MEDS: DOCUSATE SODIUM 100 MG CAPSULE PO SCH (09:22)
--- NOTE | 2017-03-11 14:18 | NUR ---
RN NOTES. PT AGAIN AVIDLY REFUSING INSULIN. PT REFUSING ORTHOSTATIC BP TEST.
--- NOTE | 2017-03-11 15:00 | NUR ---
RN D/C NOTES. PT PREPARED FOR D/C PER MD. PT A&0X1 AND TIRED FROM NOT SLEEPING MUCH DURING PM. PT TOLERATING ROOM AIR AND DENIES PAIN. SKIN ASSESSMENT DOCUMENTED. PT WITH ALL BELONGINGS AND DOCUMENTS SIGNED RNX2. PT CAIN REMOVED BUT REFUSING DIAPER CHECK TO SEE IF PT VOIDED SINCE - [facility] INFORMED. PT WITHOUT IVC AND NAD AT SITE. [place] AWARE PT REFUSING INSULIN COVERAGE. PT ENDORSED TO [place] AT [facility]. PT TRANSPORT WITH [facility] PACK[facility] TO PROVIDE TO [facility] HE[facility] CARE TEAM. PT LEFT WITH [facility]. ALL DAY SHIFT DUTIES COMPLETED EXCEPT FOR INSULIN COVERAGE. PT WITHOUT CONCERN OR COMPLAINT.
[2017-03-11 16:50] VITALS: BP_SYST 158; BP_SYST 160; BP_SYST 167; BP_DIAS 74; BP_DIAS 76; BP_DIAS 77
== END 2017-03-11 16:30 | DRG 682 ==
LOC: ER 19:11 → TELE 20:44 → MED 03-10 11:12
PROVIDERS: ADMIT Internal Medicine; ATTEND Internal Medicine
DX: N17.0 Acute kidney failure with tubular necrosis (principal); I21.A1 Myocardial infarction type 2; E11.22 Type 2 diabetes mellitus with diabetic chronic kidney disease; R55 Syncope and collapse; N18.9 Chronic kidney disease, unspecified; E78.5 Hyperlipidemia, unspecified; I12.9 Hypertensive chronic kidney disease with stage 1 through stage 4 chronic kidney disease, or unspecified chronic kidney disease; E87.6 Hypokalemia; Z79.899 Other long term (current) drug therapy; F03.90 Unspecified dementia, unspecified severity, without behavioral disturbance, psychotic disturbance, mood disturbance, and anxiety; F29 Unspecified psychosis not due to a substance or known physiological condition; D64.9 Anemia, unspecified; Z79.84 Long term (current) use of oral hypoglycemic drugs; E86.0 Dehydration
CPT/HCPCS: 36415; 70450-TC; 71045-TC; 80048-TC; 80076-TC; 81000-TC; 82962-TC; 83735-TC; 84100-TC; 84484-TC; 85025-TC; 85730-TC; 87081-TC; 87086-TC; 93880-TC; A4606; J0696; J1815; J7030; J7060; Z7610